=== PATIENT | male | born 1975 | race Caucasian/White ===

== ENCOUNTER → 2024-11-20 | Day surgery (SDC) | payer BC ==
[~2024-11-20] MED LIST: GLUCAGON FOR INJ 1 MG VIAL ONE; LIDOCAINE HCL 2% LOCAL INJ 5 ML SDV VIAL INJ ONE; PROPOFOL IV EMULSION 10 MG/ML 20 ML VIAL ONE; VITAMIN C1000 MG PO
[2024-11-20 11:15] VITALS: TEMP 97.6
[2024-11-20 11:35] VITALS: BP 138/90; PULSE 74; RESP 18; O2SAT 99
[2024-11-20] MEDS: LACTATED RINGER'S 1,000 ML ONE (12:59)
== END | disposition home or self-care (01) ==
LOC: OR 07:39
PROVIDERS: ATTEND Internal Medicine Gastroenterology
DX: Z12.11 Encounter for screening for malignant neoplasm of colon (principal); Z80.0 Family history of malignant neoplasm of digestive organs; K64.8 Other hemorrhoids; E78.5 Hyperlipidemia, unspecified; E66.9 Obesity, unspecified; Z68.30 Body mass index [BMI] 30.0-30.9, adult
CPT/HCPCS: 45378; 93005; J1610; J2003; J2704; J7121